=== PATIENT | female | born 1940 | race Caucasian/White ===

== ENCOUNTER 2018-06-03 09:59 | Outpatient (CLI) | payer MEDICARE, BC | END 2018-06-03 23:59 | disposition home or self-care (01) | LOC: RAD 09:59 | PROVIDERS: ATTEND Family Medicine | DX: N12 Tubulo-interstitial nephritis, not specified as acute or chronic (principal); R39.9 Unspecified symptoms and signs involving the genitourinary system; R31.9 Hematuria, unspecified | CPT/HCPCS: 76775 ==

== ENCOUNTER 2024-02-20 10:55 | Outpatient (CLI) | payer MEDICARE, BC, MEDICAID ==
[2024-02-20 11:25] LABS: ANION GAP 9 (8-16); BLOOD UREA NITROGEN 10 MG/DL (7-18); BUN/CREATININE RATIO 12.3 (10.0-20.0); CHLORIDE 104 MMOL/L (99-107); CREATININE 0.81 MG/DL (0.40-0.90); GLUCOSE 102 MG/DL (70-104); SODIUM 141 MMOL/L (135-145); TOTAL CARBON DIOXIDE 27.6 MMOL/L (24-32)
[2024-02-20 11:26] LABS: ALBUMIN 3.6 G/DL (3.4-5.0); CALCIUM 9.2 MG/DL (8.5-10.1); eGFR 67 ML/MIN
[2024-02-20 11:27] LABS: POTASSIUM 4.1 MMOL/L (3.5-5.1)
== END 2024-02-20 23:59 | disposition home or self-care (01) ==
LOC: RAD 10:55
PROVIDERS: ATTEND Student in an Organized Health Care Education/Training Program
DX: K57.92 Diverticulitis of intestine, part unspecified, without perforation or abscess without bleeding (principal)
CPT/HCPCS: 36415; 80048

== ENCOUNTER 2024-02-21 13:19 | Outpatient (CLI) | payer MEDICARE, BC, MEDICAID ==
[~2024-02-21 13:19] MED LIST: iohexol 300mg/ml 100ml inj. ONE
== END 2024-02-21 23:59 | disposition home or self-care (01) ==
LOC: RAD 13:19
PROVIDERS: ATTEND Student in an Organized Health Care Education/Training Program
DX: K57.92 Diverticulitis of intestine, part unspecified, without perforation or abscess without bleeding (principal); N20.0 Calculus of kidney; Z90.6 Acquired absence of other parts of urinary tract; I70.0 Atherosclerosis of aorta; M47.817 Spondylosis without myelopathy or radiculopathy, lumbosacral region
CPT/HCPCS: 74178; Q9967